=== PATIENT | male | born 2000 | race Caucasian/White ===

== ENCOUNTER 2024-08-30 15:26 | Emergency (ER) | payer OTHER, SELFPAY ==
--- OUTSIDE RECORDS SUMMARY | 2024-08-30 15:29 | XMS_ITS | Patient Health Summary ---
Author Organization [facility] Address [address] [place] [address] Care Team Providers Care Telegraph Equipment Maintainer Name Role Phone Jaja Iglesias MD Primary Care Provider [phone] Note from [facility],non-owned Affiliates and Associated Physician Practices is amultiple site organization consisting of ambulatory clinics and hospital sitesin [place], [place], [place] and [place]. This disclosure is being madepursuant to the Care Everywhere program and may not contain all information available regarding this patient. Last updated 18.[facility] Allergies No known active allergies Medications * Be aware that medications may not be up to date on this document. Alwaysverify current medications with the patient. * famotidine (PEPCID) 20 MG tablet(Started 12/26/2019) Take 1 tablet by mouth once daily 2 refills by 12/25/2020 Active Problems No known active problems Immunizations * DTaP VACCINE IM (6wk-6yrs)(Given 10/20/2006, 01/16/2003, 01/15/2002, 2001, 2001) * HEP A PEDS 2 DOSE(Given 10/20/2006, 10/25/2005) * HEP B VACCINE, PED/ADOL(Given 04/12/2002, 2001, 2001) * HIB-PRP-T 4 DOSE(Given 01/16/2003, 01/15/2002, 2001, 2001) * Human Papilloma Virus Quadrivalent Vaccine(Given 09/27/2013, 05/23/2013, 03/14/2013) * MENINGOCOCCAL CONJUGATE (MCV4P)(Given 05/22/2019, 02/26/2013) * MMR(Given 10/20/2006, 07/16/2002) * PNEUMOCOCCAL PCV7 CONJ, PEDS(Given 07/16/2002, 02/08/2002, 2001, 2001) * POLIO IPV(Given 10/20/2006, 10/15/2002, 2001, 2001) * PPD(Given 10/20/2006, 07/16/2002) * TDAP (7yrs+)(Given 02/26/2013) * VARICELLA(Given 10/20/2006, 10/15/2002) Social History Tobacco Use Types Packs/Day Years Used Date Smoking Tobacco: Never Assessed Sex and Gender Information Value Date Recorded Sex Assigned at Not on file Gender Identity Not on file Sexual Orientation Not on file Last Filed Vital Signs Vital Sign Reading Time Taken Comments Blood Pressure 132/78 05/22/2019 9:16 AM CDT Pulse 63 05/22/2019 9:16 AM CDT Temperature 36.2 ??C (97.2 ??F) 12/07/2020 4:11 PM CD T Respiratory Rate - - Oxygen Saturation - - Inhaled Oxygen Concentration - - Weight 67.2 kg (148 lb 3.2 oz) 12/07/2020 4:11 P M CDT Height 181.6 cm (5' 11.5 ) 05/22/2019 9:16 AM CD T Body Mass Index - - Procedures * URINALYSIS AUTO - POINT OF CARE (AMB) STL(Performed 09/27/2019) Performed for Left lower quadrant abdominal pain * LIPID PROFILE+GLUCOSE - POINT OF CARE (AMB)(Performed 05/22/2019) Performed for Screening cholesterol level * MYCOPLASMA PNEUMONIAE AB IGM(Performed 07/12/2017) Performed for Fever, unspecified fever cause, Cough * FORTINO-HUIZAR VIRUS ANTIBODY PANEL(Performed 07/12/2017) Performed for Fever, unspecified fever cause, Cough * MONONUCLEOSIS SCREEN(Performed 07/12/2017) Performed for Fever, unspecified fever cause, Cough * CBC W AUTO DIFFERENTIAL(Performed 07/12/2017) Performed for Fever, unspecified fever cause, Cough * INFLUENZA A+B - POINT OF CARE (AMB)(Performed 2017) Performed for Acute URI, Fever, unspecified fever cause * CULTURE AEROBIC(Performed 03/26/2015) Performed for Pharyngitis * STREP A SCREEN - POINT OF CARE (AMB)(Performed 03/26/2015) Performed for Pharyngitis * INFLUENZA A+B - POINT OF CARE (AMB)(Performed 07/19/2012) Performed for Viral illness Results * (ABNORMAL) URINALYSIS AUTO - POINT OF CARE (AMB) STL (09/27/2019 4:46 PM LICENSED SURVEYOR) [facility] Clarity UA POCT clear Color UA POCT yellow Leukocyte UA - Negative Nitrite UA POCT - Negative Urobilinogen UA 2.0(A) 0.1 - 1.0 Protein UA POCT +/- Negative pH UA 7.0 5.0 - 8.0 pH units Blood UA - Negtive Specific Harvey UA POCT 1.020 1.002 - 1.030 Ketone UA - Negative Bilirubin UA POCT - Negative Glucose UA - Negative Expiration Date 04/28/2020 Lot # [id number] Verified Yes Yes Comment:y Urine URINE / Unknown 09/27/2019 4 :46 PM LICENSED SURVEYOR Jaja Iglesias MD LAB - POINT OF CARE ORDERABLES * (ABNORMAL) LIPID PROFILE+GLUCOSE - POINT OF CARE (AMB) (05/22/2019 9:39 AM CDT) [facility] QC Verified Yes Yes Cholesterol POCT 110 200 mg/dl HDL POCT 46 mg/dL Triglycerides POCT 132(A) 130 mg/dL LDL 38 130 mg/dl Non HDL Cholesterol POCT 65 145 mg/dL Total Cholesterol/HDL Ratio POCT 2.4 6.0 Glucose 88 70 - 126 mg/dL Blood BLOOD SPECIMEN / Unknown 05/22/2019 9:39 AM CDT Jaja Iglesias MD LAB - POINT OF CARE ORDERABLES * MYCOPLASMA PNEUMONIAE AB IGM (07/12/2017 12:56 PM LICENSED SURVEYOR) [facility] Mycoplasma pneumoniae Antibody IgM <770 0 - 769 U/mL [facility] INSURANCE BILL Comment: ?Negative ?<770 ? Clinically significant amount of M. pneumoniae antibody ? not detected. ?Low Positive ?? 770 - 950 ? M. pneumoniae specific IgM presumptively detected. ??It ? is recommended that another sample be collected 1-2 ? weeks later to assure reactivity. ?Positive ?>950 ? Highly significant amount of M. pneumoniae specific ? IgM antibody detected. Blood BLOOD SPECIMEN / Unknown 07/12/2017 12:56 PM LICENSED SURVEYOR 07/12/2017 Narrative Resulting Agency Comment [facility] [address] ??[facility] [phone] Jaja Iglesias MD LAB - SEROLOGY ORDER BARRY [facility] INSURANCE BILL [address] [place] [address] * MONONUCLEOSIS SCREEN (07/12/2017 12:56 PM LICENSED SURVEYOR) Mononucleosis Test Qualitative Negative Negative [facility] INSURANCE BILL Comment: The sensitivity of Heterophile antibody testing is 80-90%. Fortino Huizar IgM testing offers higher sensitivity. Blood BLOOD SPECIMEN / Unknown 07/12/2017 12:56 PM LICENSED SURVEYOR 07/12/2017 Narrative Resulting Agency Comment [facility] [place] [address] ??[place] [phone] Jaja Iglesias MD LAB - CHEMISTRY EARLINE LIRIANO [facility] INSURANCE BILL [address] [place] [address] * (ABNORMAL) FORTINO-HUIZAR VIRUS PANEL (07/12/2017 12:56 PM LICENSED SURVEYOR) Fortino-Huizar Viral Capsid Antigen Antibody IgM <36.0 0.0 - 35.9 U/mL [facility] INSURANCE BILL Comment: ?Negative ?<36.0 ?Equivocal 36.0 - 43.9 ?Positive ?>43.9 Fortino-Huizar Virus Early Antigen Antibody IgG <9.0 0.0 - 8.9 U/mL [facility] INSURANCE BILL Comment: ?Negative ?< 9.0 ?Equivocal ??9.0 - 10.9 ?Positive ?>10.9 Fortino-Huizar Viral Capsid Antigen Antibody IgG >600.0(H) 0.0 - 17.9 U/mL [facility] INSURANCE BILL Comment: ?Negative ?<18.0 ?Equivocal 18.0 - 21.9 ?Positive ?>21.9 Fortino-Huizar Virus Antibody IgG Nuclear Antigen 370.0(H) 0.0 - 17.9 U/mL [facility] INSURANCE BILL Comment: ?Negative ?<18.0 ?Equivocal 18.0 - 21.9 ?Positive ?>21.9 Interpretation [facility] INSURANCE BILL Comment: ?EBV Interpretation Chart ?. ? Interpretation ?? EBV-IgM ??EA(D)-IgG ??VCA-IgG ??EBNA-IgG ?. ? EBV Seronegative ?- ?- ? - ?- ? Early Phase ? + ?- ? - ?- ? Acute Primary ? + ? +or- ? + ?- ? Infection ? Convalescence/Past ??- ? +or- ? + ?+ ? Infection ? Reactivated ?+or- ?+ ? + ?+ ? Infection ?+ Antibody Present ?- Antibody Absent Blood BLOOD SPECIMEN / Unknown 07/12/2017 12:56 PM LICENSED SURVEYOR 07/12/2017 Narrative Resulting Agency Comment [facility] [place] [address] ??[place] [phone] Jaja Iglesias MD LAB - CHEMISTRY EARLINE LIRIANO [facility] INSURANCE BILL [address] [place] [address] * (ABNORMAL) CBC W AUTO DIFFERENTIAL (07/12/2017 12:56 PM LICENSED SURVEYOR) WBC 2.6(L) 3.4 - 10.8 x10E3/uL [facility] INSURANCE BILL RBC 5.03 4.14 - 5.80 x10E6/uL [facility] INSURANCE BILL Hemoglobin 15.8 13.0 - 17.7 g/dL [facility] INSURANCE BILL Comment:Please note refere nce interval change Hematocrit 43.1 37.5 - 51.0 % [facility] INSURANCE BILL MCV 86 79 - 97 fL [facility] INSURANCE BILL MCH 31.4 26.6 - 33.0 pg [facility] INSURANCE BILL MCHC 36.7(H) 31.5 - 35.7 g/dL [facility] INSURANCE BILL RDW 12.9 12.3 - 15.4 % [facility] INSURANCE BILL Platelet Count 124(L) 150 - 379 x10E3/uL [facility] INSURANCE BILL Granulocytes % 25 Not Estab. % [facility] INSURANCE BILL Lymphocytes % 55 Not Estab. % [facility] INSURANCE BILL Comment:Lymphocytes appear r eactive. Monocytes % 20 Not Estab. % [facility] INSURANCE BILL Eosinophils % 0 Not Estab. % [facility] INSURANCE BILL Basophils % 0 Not Estab. % [facility] INSURANCE BILL Immature Cells NOT NEEDED [facility] INSURANCE BILL Comment:Ancillary determined the test is not needed Granulocytes Absolute 0.6(L) 1.4 - 7.0 x10E3/uL [facility] INSURANCE BILL Lymphocytes Absolute 1.4 0.7 - 3.1 x10E3/uL [facility] INSURANCE BILL Monocytes Absolute 0.5 0.1 - 0.9 x10E3/uL [facility] INSURANCE BILL Eosinophils Absolute 0.0 0.0 - 0.4 x10E3/uL [facility] INSURANCE BILL Basophils Absolute 0.0 0.0 - 0.3 x10E3/uL [facility] INSURANCE BILL Immature Granulocytes 0 Not Estab. % [facility] INSURANCE BILL Immature Granulocytes Absolute 0.0 0.0 - 0.1 x10E3/uL [facility] INSURANCE BILL nRBC NOT NEEDED [facility] INSURANCE BILL Comment:Ancillary determined the test is not needed Comment Hematology Note: [facility] INSURANCE BILL Comment:Verified by microsco pic examination. Blood BLOOD SPECIMEN / Unknown 07/12/2017 12:56 PM LICENSED SURVEYOR 07/12/2017 Narrative Resulting Agency Comment [facility] [address] ??[facility] [phone] Jaja Iglesias MD LAB - HEMATOLOGY ORD ERABLES Performing Organization Address City/[facility]/ZIP Co de Phone Number [facility] INSURANCE BILL [address] [place] [address] * INFLUENZA A+B - POINT OF CARE (AMB) (2017) Only the most recent of2 resultswithin the time period is included. Influenza A Antigen Rapid Negative Negative Influenza B Antigen Rapid Negative Negative Influenza Internal Control p NEGATIVE - POSITIVE Influenza Lot Number [id number] Influenza Expiration Date 10/04/18 Other SPECIMEN FROM NASOPHARYNGEAL STRUCTURE / Unknown 2017 Jaja Iglesias MD LAB - POINT OF CARE ORDERABLES * CULTURE AEROBIC (03/26/2015 11:11 AM CDT) Aerobic Bacterial Culture Final report [facility] INSURANCE BILL Result 1 [facility] INSURANCE BILL Comment:Routine respiratory myriam Miscellaneous samples (specimen) SPECIMEN FROM TONSIL / Unknown 03/26/2015 11:11 AM CDT 03/26/2015 9:40 PM CDT Narrative Resulting Agency Comment [facility] [address] ??[facility] [phone] Jaja Iglesias MD LAB - MICROBIOLOGY O RDERABLES [facility] INSURANCE BILL * STREP A SCREEN - POINT OF CARE (AMB) (03/26/2015 11:03 AM CDT) Strep A Rapid POCT Negative Negative Strep A Internal Control Other (qualifier value) ENTIRE THROAT (SURFACE REGION OF NECK) / Unknown 03/26/2015 11:03 AM CDT Jaja Iglesias MD LAB - POINT OF CARE ORDERABLES Care Teams Telegraph Equipment Maintainer Relationship Specialty Start Date End Date Jaja Iglesias MD PCP - General Pediatrics 03/26/15
--- OUTSIDE RECORDS SUMMARY | 2024-08-30 15:29 | XMS_ITS | Referral Summary ---
Author Organization [facility] Address [address] [place] [address] Care Team Providers Care Concrete Finishing Machine Operator Name Role Phone Jaja Iglesias MD Primary Care Provider [phone] Source Comments [facility],non-owned Affiliates and Associated Physician Practices is amultiple site organization consisting of ambulatory clinics and hospital sitesin [place], [place], [place] and [place]. This disclosure is being madepursuant to the Care Everywhere program and may not contain all information available regarding this patient. Last updated 18.[facility] Allergies No known active allergies Medications * Be aware that medications may not be up to date on this document. Alwaysverify current medications with the patient. Medication Sig Dispensed Refills Start Date End Date Status famotidine (PEPCID) 20 MG tablet Take 1 tablet by mouth once daily 30 tablet 2 12/26/2019 Active Active Problems No known active problems Immunizations Name Administration Dates Next Due DTaP VACCINE IM (6wk-6yrs) 10/20/2006,,01/15/2002,11/12,2001 HEP A PEDS 2 DOSE 10/20/2006,10/25/2005 HEP B VACCINE, PED/ADOL 04/12/2002,2001, HIB-PRP-T 4 DOSE 01/16/2003, 2,2001,09/13 Human Papilloma Virus Benoit valent Vaccine 09/27/2013,05/23/2013,03/14/2013 MENINGOCOCCAL CONJUGATE (MCV4P) 05/22/2019,02/26 MMR 10/20/2006,07/16/2002 PNEUMOCOCCAL PCV7 CONJ, PEDS 07/16/2002, 02/08/2002,2001,09/13 POLIO IPV 10/20/2006, 3,2001,09/13 PPD 10/20/2006,07/16/2002 TDAP (7yrs+) 02/26/2013 VARICELLA 10/20/2006,10/15/2002 Social History Tobacco Use Types Packs/Day Years [...] CD T Body Mass Index - - Plan of Treatment Not on file Goals Goal Patient Goal Type Associated Problems Recent Progress Patient-Stated? 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
--- OUTSIDE RECORDS SUMMARY | 2024-08-30 15:29 | XMS_ITS | Clinical Summary ---
Author Organization [facility] Address [address] [place] [address] Care Team Providers Care Stucco Laborer Name Role Phone Jaja Iglesias MD Primary Care Provider [phone] Source Comments [facility],non-owned Affiliates and Associated Physician Practices is amultiple site organization consisting of ambulatory clinics and hospital sitesin [place], [place], [place] and [place]. This disclosure is being madepursuant to the Care Everywhere program and may not contain all information available regarding this patient. Last updated 18.[employer] [facility] Allergies No known active allergies Medications * [...] Mass Index - - Plan of Treatment Health Maintenance Due Date Last Done Comments HIV SCREENING 2016 MENINGOCOCCAL (Group B) VACC INE (1 of 2 - Standard) 2017 HEPATITIS C SCREENING 07/06/2019 DTAP/TDAP/TD VACCINES (7 - T d or Tdap) 02/26/2023 02/26/2013, 10/20/2006, 01/16/2003, Additional history exists COVID-19 VACCINE ( - 2023-2 5 season) 2024 INFLUENZA VACCINE (#1) 2024 DEPRESSION SCREENING 08/07/2024 ZOSTER VACCINE (1 of 2) 2051 HEPATITIS B VACCINE Completed 04/12/2002, 2001, 2001 PNEUMOCOCCAL VACCINE Completed 07/16/2002, 02/08/2002, 2001, Additional history exists HIB VACCINE Completed 01/16/2003, 01/05, 2001, Additional history exists HPV VACCINE Completed 09/27/2013, 05/07, 03/14/2013 MENINGOCOCCAL VACCINE Completed 05/22/2019, 013 Goals Goal Patient Goal Type Associated Problems Recent Progress Patient-Stated? 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
[2024-08-30 15:37] VITALS: BP 124/67; PULSE 109; RESP 18; TEMP 37.2; O2SAT 96
--- NOTE | 2024-08-30 15:38 | ED.URI ---
HPI - URI/Sore Throat General Chief Complaint: Upper Respiratory Infection Stated Complaint: Cough/Headache/Sore Throat Time Seen by Provider: 08/30/24 15:38 Source: patient, RN notes reviewed and old records reviewed Mode of arrival: ambulatory Limitations: no limitations History of Present Illness HPI Narrative: 24 year old male presents to [facility] care with complaints of sore throat, headache, runny nose, cough and sore throat for the past 3 days. Patient reports that he has been taking DayQuil and NyQuil and Ibuprofen for his symptoms. Patient reports that he has had some chills and sweats and thinks he has had some fevers but has not checked his temperature. MD elicited complaint: fever, cough, sore throat, rhinorrhea, nasal congestion and other (headache) Onset (ago): day(s) (3) Severity: moderate Able to tolerate fluids by mouth: Yes Treatments prior to arrival: ibuprofen and other (DayQuil and NyQuil) Related Data Allergies Allergy/AdvReac Type Severity Reaction Status Date / Time No Known Allergies Allergy Unverified 12/05/18 12:10 Review of Systems Review of Systems: CONSTITUTIONAL: Reports malaise, some chills, sweats, or fever. EYES: Denies visual changes, redness, or discharge. ENT: Reports rhinorrhea, congestion, sinus pain, no otalgia and positive of sore throat. CARDIOVASCULAR: Denies chest pain, palpitations, or edema. RESPIRATORY: Reports cough.? Denies dyspnea. GASTROINTESTINAL: Denies abdominal pain, nausea, vomiting, diarrhea SKIN: Denies rash or itching. MUSCULOSKELETAL: Denies myalgia. NEUROLOGIC:Reports headache. All systems reviewed & are unremarkable except as noted in HPI and below PMFSH Social History Social History (Updated 08/31/24 @ 12:56 by Sruthi Stanford NP) Smoking status: Never smoker Alcohol intake: current Alcohol use details: social Substance use type: does not use Gender identity (if verbalized by the patient): Male Comments At time of signature, agree with nursing past medical, surgical, social and family history. There is no relevant family history pertinent to the presenting complaint Exam Narrative: GENERAL: Well-appearing, well-nourished, and in no acute distress. HEAD: Normocephalic EYES: PERRLA, conjunctivae clear ENT: Nares clear, turbinates edematous and erythematous, clear discharge.headache Mucous membranes moist. TM pearly rollins with dull light reflex bilaterally; no tragal tenderness. Oropharynx erythematous without lesions. Tonsils not enlarged and without exudate, no drooling, no hoarseness, no trismus, uvula midline.post nasal discharge NECK: Supple. No lymphadenopathy CHEST: Clear to auscultation, breath sounds equal. No wheezing, rhonchi, rales, or stridor. No respiratory distress, speaks in full sentences.cough noted,SAO2 96% on room air HEART: Regular rate and rhythm. No murmur heard. SKIN: Warm, dry, no rash. NEURO: Alert and oriented x3. PSYCH: Normal mood and affect Course Course Emergency Course: Patient is aware of diagnosis, understands and agrees to treatment plan.? Anticipatory guidance given.? Patient agrees to follow-up as directed and is aware of reasons to seek care at the emergency department. Portions of this record may have been created with voice recognition software Level of Care: Express Care Visit Vital Signs Vital signs: Vital Signs Temperature 37.2 C 08/30/24 15:37 Pulse Rate 109 H 08/30/24 15:37 Respiratory Rate 18 08/30/24 15:37 Blood Pressure 124/67 08/30/24 15:37 Pulse Oximetry 96 08/30/24 15:37 Oxygen Delivery Room Air 08/30/24 15:37 Temperature 37.2 C 08/30/24 15:37 Pulse Rate 109 H 08/30/24 15:37 Respiratory Rate 18 08/30/24 15:37 Blood Pressure 124/67 08/30/24 15:37 Pulse Oximetry 96 08/30/24 15:37 Oxygen Delivery Room Air 08/30/24 15:37 Reviewed MDM - URI/Sore Throat MDM Narrative Medical decision making narrative: Differential diagnosis considered: Do virus, strep pharyngitis, allergic rhinitis, upper respiratory tract infection, sinusitis, rhinosinusitis, nasopharyngitis. viral pharyngitis, otitis media, otitis externa, pneumonia, bronchitis, viral cough syndrome, viral syndrome, and influenza.? Exam findings show no acute concerns or changes; patient is non-toxic appearing and is in no distress.? Patient is appropriate for outpatient treatment and follow-up. Differential Diagnosis Differential diagnosis: Likely upper respiratory infection, viral infection, influenza, pharyngitis and other (COVID, strep pharyngitis, cough) Medical Records Attestation: I reviewed the patient's medical records. Lab Data Attestation: I reviewed the patient's lab results. Lab results narrative: strep screen negative, culture sent, Influenza A negative, Influenza B negative, COVID antigen negative Labs: Lab Results 08/30/24 Range/Units 16:29 POC Influenza A Ag Negative (Negative) POC Influenza B Ag Negative (Negative) POC SARS CoV-2 Ag Negative (Negative) POC Grp A Strep Screen Negative (Negative) reviewed Critical Care Time Critical Care Time Critical Care Time: No Discharge Plan Discharge Clinical Impression: Upper respiratory infection Qualifiers: URI type: unspecified URI Qualified Code(s): J06.9 - Acute upper respiratory infection, unspecified Cough Qualifiers: Cough type: acute Qualified Code(s): R05.1 - Acute cough Patient Disposition: Home, Self-Care Condition: Stable Instructions: Upper Respiratory Infection (ED) Additional Instructions: Increase fluids especially juices and water Hudx-uhn-kfvwliz cough and cold medicine of your choice for your symptoms Zyrtec Claritin or Jannet daily Cough tablets as directed for cough--do not bite, chew or suck on--swallow whole Steroids as directed--take with food heat to the face 20-30 minutes 4-6 times a day for pain Salt water gargles, throat lozenges or throat sprays as desired Your strep test today was negative. A throat culture will be sent to the laboratory for further testing. IF the test is positive, you will receive a phone call within 48 hours and an appropriate antibiotic will be initiated at that time. Tylenol or ibuprofen for any fever pain Patient Language: Polish Prescriptions: New methylprednisolone [Medrol (Rasheed)] 4 mg tablets,dose pack See Rx Instructions .ROUTE .COMPLEX Qty: 21 0RF Rx Instructions: orally per package directions take with food benzonatate 200 mg capsule 200 mg PO TID PRN (Reason: cough) Qty: 20 0RF Follow-up/Referrals: PHYSICIAN,MICROFILM MACHINE OPERATOR [Primary Care Provider] - Time of Disposition: 16:40 Quality [place] Coma Scale Eyes: Open Verbal: Oriented and Alert Motor: Follows Commands Billy Coma Total Score: 15
[2024-08-30 16:32] LABS: EDCOVIDSCREEN Negative (Negative); EDINFLUASCREEN Negative (Negative); EDINFLUBSCREEN Negative (Negative); EDSTREPNEGPOS1 Negative (Negative)
== END 2024-08-30 16:46 | disposition home or self-care (01) ==
PROVIDERS: Emergency Provider Registered Nurse
DX: J06.9 Acute upper respiratory infection, unspecified (principal); R05.1 Acute cough; Z20.822 Contact with and (suspected) exposure to COVID-19
CPT/HCPCS: 87081; 87426; 87804; 87880; 99203; G0463

== ENCOUNTER 2024-09-04 18:02 | Emergency (ER) | payer OTHER, SELFPAY ==
--- NOTE | ~2024-09-04 | XR_ITS ---
EXAMINATION: XR chest 2V Exam Date/Time: 09/04/2024 18:44 DESIGN PRINTER BALLOON HISTORY: hemoptysis Comparison: None. RESULT: Lines, tubes, and devices: None. Lungs and pleura: Clear. Cardiomediastinal silhouette: Normal. Other: No acute osseous or upper abdominal finding. IMPRESSION: No acute cardiopulmonary process. Reviewed, dictated and finalized at location K. GN PRINTER BALLOON
--- OUTSIDE RECORDS SUMMARY | 2024-09-04 18:05 | XMS_ITS | Referral Summary ---
Author Organization [facility] [employer] Address [address] [place] [address] Care Team Providers Care Backhoe Operator Name Role Phone Jaja Iglesias MD Primary Care Provider [phone] Source Comments [facility] [employer],non-owned Affiliates and Associated Physician Practices is amultiple site organization consisting of ambulatory clinics and hospital sitesin [place], [place], [place] and [place]. This disclosure is being madepursuant to the Care Everywhere program and may not contain all information available regarding this patient. Last updated 18.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
--- OUTSIDE RECORDS SUMMARY | 2024-09-04 18:05 | XMS_ITS | Clinical Summary ---
Author Organization [facility] [employer] Address [address] [place] [address] Care Team Providers Care Retail Shift Leader Name Role Phone Jaja Iglesias MD Primary Care Provider [phone] Source Comments [facility] [employer],non-owned Affiliates and Associated Physician Practices is amultiple site organization consisting of ambulatory clinics and hospital sitesin [place], [place], [place] and [place]. This disclosure is being madepursuant to the Care Everywhere program and may not contain all information available regarding this patient. 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
--- OUTSIDE RECORDS SUMMARY | 2024-09-04 18:05 | XMS_ITS | Patient Health Summary ---
Author Organization [facility] Address [address] [place] [address] Care Team Providers Care Clinical Rn Manager Name Role Phone Jaja Iglesias MD Primary Care Provider [phone] Note from [facility],non-owned Affiliates and Associated Physician Practices is amultiple site organization consisting of ambulatory clinics and hospital sitesin [place], [place], [place] and [place]. This disclosure is being madepursuant to the Care Everywhere program and may not contain all information available regarding this patient. Last updated 18.[facility] Allergies No known active allergies Medications [...] OF CARE (AMB) STL (09/27/2019 4:46 PM SLOT SERVICE SPECIALIST) [facility] Clarity UA POCT clear Color UA POCT yellow Leukocyte UA - Negative Nitrite UA POCT - Negative Urobilinogen UA 2.0(A) 0.1 - 1.0 Protein UA POCT +/- Negative pH UA 7.0 5.0 - 8.0 pH units Blood UA - Negtive Specific [place] UA POCT 1.020 1.002 - 1.030 Ketone UA - Negative Bilirubin UA POCT - Negative Glucose UA - Negative Expiration Date 04/28/2020 Lot # [id number] QC Verified Yes Yes Comment:y Urine URINE / Unknown 09/27/2019 4 :46 PM SLOT SERVICE SPECIALIST Jaja Iglesias MD LAB - POINT OF CARE ORDERABLES * (ABNORMAL) LIPID PROFILE+GLUCOSE - POINT OF CARE (AMB) (05/22/2019 9:39 AM CDT) [facility] QC Verified Yes Yes Cholesterol POCT 110 [...] MYCOPLASMA PNEUMONIAE AB IGM (07/12/2017 12:56 PM SLOT SERVICE SPECIALIST) [facility] Mycoplasma pneumoniae Antibody IgM <770 0 - [...] BLOOD SPECIMEN / Unknown 07/12/2017 12:56 PM SLOT SERVICE SPECIALIST 07/12/2017 Narrative Resulting Agency Comment [facility] [address] ??[facility] [phone] Jaja Iglesias MD LAB - SEROLOGY ORDER BARRY [facility] INSURANCE BILL [address] [place] [address] * MONONUCLEOSIS SCREEN (07/12/2017 12:56 PM SLOT SERVICE SPECIALIST) Mononucleosis Test Qualitative Negative Negative [facility] INSURANCE BILL Comment: The sensitivity of Heterophile antibody testing is 80-90%. Fortino Huizar IgM testing offers higher sensitivity. Blood BLOOD SPECIMEN / Unknown 07/12/2017 12:56 PM SLOT SERVICE SPECIALIST 07/12/2017 Narrative Resulting Agency Comment [facility] [place] [address] ??[place] [phone] Jaja Iglesias MD LAB - CHEMISTRY EARLINE LIRIANO [facility] INSURANCE BILL [address] [place] [address] * (ABNORMAL) FORTINO-HUIZAR VIRUS PANEL (07/12/2017 12:56 PM SLOT SERVICE SPECIALIST) [facility]Huizar Viral Capsid Antigen Antibody IgM <36.0 [...] BLOOD SPECIMEN / Unknown 07/12/2017 12:56 PM SLOT SERVICE SPECIALIST 07/12/2017 Narrative Resulting Agency Comment [facility] [place] [address] ??[place] [phone] Jaja Iglesias MD LAB - CHEMISTRY EARLINE LIRIANO [facility] INSURANCE BILL [address] [place] [address] * (ABNORMAL) CBC W AUTO DIFFERENTIAL (07/12/2017 12:56 PM SLOT SERVICE SPECIALIST) WBC 2.6(L) 3.4 - 10.8 x10E3/uL [facility] [...] BLOOD SPECIMEN / Unknown 07/12/2017 12:56 PM SLOT SERVICE SPECIALIST 07/12/2017 Narrative Resulting Agency Comment [facility] [address] ??[facility] [phone] Jaja Iglesias MD LAB - HEMATOLOGY ORD ERABLES Performing Organization Address City/[facility]/ZIP Co de Phone Number [facility] INSURANCE BILL [address] [place] [address] * INFLUENZA A+B - POINT OF CARE [...] 9:40 PM CDT Narrative Resulting Agency Comment [facility] [address] ??[facility] [phone] Jaja Iglesias MD LAB - MICROBIOLOGY O RDERABLES [facility] INSURANCE BILL * STREP A SCREEN - POINT OF CARE (AMB) (03/26/2015 11:03 AM CDT) Strep A Rapid POCT Negative Negative Strep A Internal Control Other (qualifier value) ENTIRE THROAT (SURFACE REGION OF NECK) / Unknown 03/26/2015 11:03 AM CDT Jaja Iglesias MD LAB - POINT OF CARE ORDERABLES Care Teams Clinical Rn Manager Relationship Specialty Start Date End Date Jaja Iglesias MD PCP - General Pediatrics 03/26/15
[2024-09-04 18:13] VITALS: BP 153/80; PULSE 101; RESP 16; TEMP 36.5; O2SAT 95
--- OUTSIDE RECORDS SUMMARY | 2024-09-04 18:49 | XMS_ITS | Referral Summary ---
Author Organization [facility] Address [address] [place] [address] Care Team Providers Care Music Therapy Teacher Name Role Phone Jaja Iglesias MD Primary Care Provider [phone] Source Comments [facility],non-owned Affiliates and Associated Physician Practices is amultiple site organization consisting of ambulatory clinics and hospital sitesin [place], [place], [place] and [place]. This disclosure is being madepursuant to the Care Everywhere program and may not contain all information available regarding this patient. Last updated 18.[facility] Allergies No known active allergies Medications * [...] car Lifestyle On track( 020 4:13 PM 911 TELECOMMUNICATOR) No Sruthi West, DANNA Care Teams Music Therapy Teacher Relationship Specialty Start Date End Date Jaja Iglesias MD PCP - General Pediatrics 03/26/15
--- OUTSIDE RECORDS SUMMARY | 2024-09-04 18:49 | XMS_ITS | Clinical Summary ---
Author Organization [facility] Address [address] [place] [address] Care Team Providers Care Art Gilder Name Role Phone Jaja Iglesias MD Primary Care Provider [phone] Source Comments [facility],non-owned Affiliates and Associated Physician Practices is amultiple site organization consisting of ambulatory clinics and hospital sitesin [place], [place], [place] and [place]. This disclosure is being madepursuant to the Care Everywhere program and may not contain all information available regarding this patient. Last updated 18.[facility] Allergies No known active allergies Medications * [...] car Lifestyle On track( 020 4:13 PM VIOLIN MECHANIC) No Sruthi West, RN Care Teams Art Gilder Relationship Specialty Start Date End Date Jaja Iglesias MD PCP - General Pediatrics 03/26/15
--- OUTSIDE RECORDS SUMMARY | 2024-09-04 18:49 | XMS_ITS | Patient Health Summary ---
Author Organization [facility] Address [address] [place] [address] Care Team Providers Care Pharmaceutical Plant Operator Name Role Phone Jaja Iglesias MD Primary Care Provider [phone] [facility],non-owned Affiliates and Associated Physician Practices is amultiple site organization consisting of ambulatory clinics and hospital sitesin [place], [place], [place] and [place]. This disclosure is being madepursuant to the Care Everywhere program and may not contain all information available regarding this patient. Last updated 18.[facility] Allergies No known active allergies Medications * [...] OF CARE (AMB) STL (09/27/2019 4:46 PM NUCLEAR UNIT OPERATOR) [facility] Clarity UA POCT clear Color UA POCT yellow Leukocyte UA - Negative Nitrite UA POCT - Negative Urobilinogen UA 2.0(A) 0.1 - 1.0 Protein UA POCT +/- Negative pH UA 7.0 5.0 - 8.0 pH units Blood UA - Negtive Specific [place] UA POCT 1.020 1.002 - 1.030 Ketone UA - Negative Bilirubin UA POCT - Negative Glucose UA - Negative Expiration Date 04/28/2020 Lot # [id number] QC Verified Yes Yes Comment:y Urine URINE / Unknown 09/27/2019 4 :46 PM NUCLEAR UNIT OPERATOR Jaja Iglesias MD LAB - POINT OF CARE ORDERABLES * (ABNORMAL) LIPID PROFILE+GLUCOSE - POINT OF CARE (AMB) (05/22/2019 9:39 AM CDT) [facility] QC Verified Yes Yes Cholesterol POCT 110 [...] MYCOPLASMA PNEUMONIAE AB IGM (07/12/2017 12:56 PM NUCLEAR UNIT OPERATOR) [facility] Mycoplasma pneumoniae Antibody IgM <770 0 - [...] BLOOD SPECIMEN / Unknown 07/12/2017 12:56 PM NUCLEAR UNIT OPERATOR 07/12/2017 Narrative Resulting Agency Comment [facility] [address] ??[facility] [phone] Jaja Iglesias MD LAB - SEROLOGY ORDER BARRY [facility] INSURANCE BILL [address] [place] [address] * MONONUCLEOSIS SCREEN (07/12/2017 12:56 PM NUCLEAR UNIT OPERATOR) Mononucleosis Test Qualitative Negative Negative [facility] INSURANCE BILL Comment: The sensitivity of Heterophile antibody testing is 80-90%. Fortino Huizar IgM testing offers higher sensitivity. Blood BLOOD SPECIMEN / Unknown 07/12/2017 12:56 PM NUCLEAR UNIT OPERATOR 07/12/2017 Narrative Resulting Agency Comment [facility] [place] [address] ??[place] [phone] Jaja Iglesias MD LAB - CHEMISTRY EARLINE LIRIANO [facility] INSURANCE BILL [address] [place] [phone] * (ABNORMAL) FORTINO-HUIZAR VIRUS PANEL (07/12/2017 12:56 PM NUCLEAR UNIT OPERATOR) Fortino-Huizar Viral Capsid Antigen Antibody IgM <36.0 [...] BLOOD SPECIMEN / Unknown 07/12/2017 12:56 PM NUCLEAR UNIT OPERATOR 07/12/2017 Narrative Resulting Agency Comment [facility] [place] [address] [facility] ??[place] [phone] Jaja Iglesias MD LAB - CHEMISTRY EARLINE LIRIANO [facility] INSURANCE BILL [address] [place] [address] * (ABNORMAL) CBC W AUTO DIFFERENTIAL (07/12/2017 12:56 PM NUCLEAR UNIT OPERATOR) WBC 2.6(L) 3.4 - 10.8 x10E3/uL [facility] [...] BLOOD SPECIMEN / Unknown 07/12/2017 12:56 PM NUCLEAR UNIT OPERATOR 07/12/2017 Narrative Resulting Agency Comment [facility] [address] ??[facility] [phone] Jaja Iglesias MD LAB - HEMATOLOGY ORD ERABLES Performing Organization Address City/[facility]/ZIP Co de Phone Number [facility] INSURANCE BILL [address] [place] [address] * INFLUENZA A+B - POINT OF CARE [...] 9:40 PM CDT Narrative Resulting Agency Comment [facility] [address] ??[facility] [phone] Jaja Iglesias MD LAB - MICROBIOLOGY O RDERABLES [facility] INSURANCE BILL * STREP A SCREEN - POINT OF CARE (AMB) (03/26/2015 11:03 AM CDT) Strep A Rapid POCT Negative Negative Strep A Internal Control Other (qualifier value) ENTIRE THROAT (SURFACE REGION OF NECK) / Unknown 03/26/2015 11:03 AM CDT Jaja Iglesias MD LAB - POINT OF CARE ORDERABLES Care Teams Pharmaceutical Plant Operator Relationship Specialty Start Date End Date Jaja Iglesias MD PCP - General Pediatrics 03/26/15
--- NOTE | 2024-09-04 22:11 | ED_ITS ---
HPI - URI/Sore Throat General Chief Complaint: Upper Respiratory Infection Stated Complaint: coughing up blood Time Seen by Provider: 09/04/24 21:52 Source: patient Mode of arrival: ambulatory Limitations: no limitations History of Present Illness [facility] Narrative: This is a 24-year-old male who presents to the ED for chief complaint of bloody cough starting today. Patient states that he has been persistently coughing for the past week. He was seen initially by urgent care prescribed steroids and cough medications. He was told it was probably a viral illness. Patient states that he has not been having any fevers and does not feel short of breath. States the cough has not really gotten better and today progressed to the hemoptysis which was worrisome to him. Denies associated chest pain, syncope, back pain, nausea, vomiting. Denies any history of DVT or blood clot. Denies recent travel or hospitalization. Related Data Allergies Allergy/AdvReac Type Severity Reaction Status Date / Time No Known Allergies Allergy Unverified 12/05/18 12:10 Review of Systems Review of Systems: All systems as dictated in [facility] Social History Social History (Updated 08/31/24 @ 12:56 by Sruthi Stanford NP) Smoking status: Never smoker Alcohol intake: current Alcohol use details: social Substance use type: does not use Gender identity (if verbalized by the patient): Male Exam Narrative: GENERAL: Well-appearing, well-nourished, and in no acute distress. HEAD: Normocephalic, atraumatic. EYES: PERRLA and EOMI. ENT: Nares clear, no rhinorrhea or epistaxis. Mucous membranes moist. Oropharynx without tonsillar hypertrophy exudate or other lesions. NECK: Supple. No adenopathy or masses. CHEST: No respiratory distress. Clear to auscultation. No wheezes rales or rhonchi HEART: Regular rate and rhythm. No murmur heard. Normal peripheral pulses. ABDOMEN: Soft, nontender, nondistended, normal active bowel sounds. MSK: Normal range of motion. No edema. SKIN: Warm, dry, no rash. NEURO: Alert and oriented x4. No focal deficits. PSYCH: Normal mood and affect. Course Vital Signs Vital signs: Vital Signs Temperature 97.7 F 09/04/24 18:13 Pulse Rate 101 H 09/04/24 18:13 Respiratory Rate 16 09/04/24 18:13 Blood Pressure 153/80 H 09/04/24 18:13 Pulse Oximetry 95 09/04/24 18:13 Oxygen Delivery Room Air 09/04/24 18:13 Temperature 97.7 F 09/04/24 18:13 Pulse Rate 97 09/04/24 22:36 Respiratory Rate 14 09/04/24 22:36 Blood Pressure 149/82 H 09/04/24 22:36 Pulse Oximetry 99 09/04/24 22:36 Oxygen Delivery Room Air 09/04/24 22:22 MDM - URI/Sore Throat MDM Narrative Medical decision making narrative: This is a 24-year-old male who presents to the ED for chief complaint of several episodes of hemoptysis starting today after a week's worth of cough. Vitals are normal. Exam is benign. No respiratory distress. No chest pain. Chest x-ray shows no acute findings. Patient was just seen for this cough recently and I suspect that his symptoms are most likely due to a viral bronchitis. Patient is feeling improved on my arrival and is requesting to go home. I offered to further investigate this hemoptysis with blood work but patient is declining at this time. I do feel this is reasonable. I have low concern for ACS, pneumothorax or pulmonary embolism. His Wells score is low. Prescribed Augmentin for possible developing pneumonia superimposed on viral br onchitis. Patient will be discharged in stable condition. Supportive measures discussed and strict return precautions given. Patient is understanding and agreeable with plan for discharge with PCP follow-up. Lab Data Labs: Lab Results 09/04/24 Range/Units 22:08 Influenza A (RT-PCR) Pending Influenza B (RT-PCR) Pending RSV (RT-PCR) Pending SARS-CoV-2 RNA (RT-PCR) Pending Discharge Plan Discharge Clinical Impression: Upper respiratory infection Patient Disposition: Home, Self-Care Condition: Stable Instructions: Antibiotic Form, Acute Bronchitis (ED) Additional Instructions: Your exam today is probably indicating bronchitis which is from my virus about 95% of the time. However it is possible that there is a pneumonia developing. Please take antibiotics as prescribed. Return to the ER immediately for any new or worsening symptoms including uncontrolled fevers, shortness of breath or chest pain Follow-up with PCP on this issue and continue taking other medications as prescribed. Patient Language: Kosovan Prescriptions: New amoxicillin-pot clavulanate 875-125 mg tablet 1 tablet PO Q12H Qty: 14 0RF No Action methylprednisolone [Medrol (Rasheed)] 4 mg tablets,dose pack See Rx Instructions .ROUTE .COMPLEX Qty: 21 0RF Rx Instructions: orally per package directions take with food benzonatate 200 mg capsule 200 mg PO TID PRN (Reason: cough) Qty: 20 0RF Follow-up/Referrals: PHYSICIAN,REHABILITATION CONSTRUCTION SPECIALIST [Primary Care Provider] - Time of Disposition: 22:15
[2024-09-04 22:22] VITALS: O2SAT 100
[2024-09-04 22:36] VITALS: BP 149/82; PULSE 97; RESP 14; O2SAT 99
[2024-09-04 22:50] LABS: Influenza A QL RT-PCR Negative (Negative); Influenza B QL RT-PCR Negative (Negative); RSV RNA, RT-PCR Negative (Negative); SARS-CoV-2 RNA PCR Negative (Negative)
== END 2024-09-04 22:37 | disposition home or self-care (01) ==
PROVIDERS: Emergency Provider Physician Assistant
DX: J06.9 Acute upper respiratory infection, unspecified (principal); Z20.822 Contact with and (suspected) exposure to COVID-19
CPT/HCPCS: 71046; 87637; 99283